=== PATIENT | male | born 1970 | race Caucasian/White ===

== ENCOUNTER → 2025-01-26 | Outpatient (CLI) | payer OTHER, SELFPAY ==
--- NOTE | 2025-01-26 09:35 | NM_ITS ---
PROCEDURE: PARATHYROID SCAN REASON FOR EXAM: LOCALIZATION TECHNIQUE: PARATHYROID SCAN imaging performed following intravenous technetium-99m sestamibi administration. Anterior imaging of the neck through hours. RADIOPHARMACEUTICAL: Sestamibi DOSE 27mCi COMPARISON: None FINDINGS: On the initial image of the neck, focal uptake is seen in the lower pole of the left lobe of the thyroid. Correlation with ultrasound recommended. On the 2 hour delayed images, no evidence of parathyroid uptake. NM/Parathyroid Scan IMPRESSION: No evidence of parathyroid uptake. On the initial image, focal increased uptake of pharmaceutical seen in the lowe r pole of the left lobe of the thyroid. Correlation with ultrasound recommended. Reading Location: [facility]
== END | disposition home or self-care (01) ==
LOC: NM 09:30
PROVIDERS: PCP Family Medicine; Referring Provider Internal Medicine Endocrinology, Diabetes & Metabolism; Visit Provider Internal Medicine Endocrinology, Diabetes & Metabolism
DX: E21.0 Primary hyperparathyroidism (principal)
CPT/HCPCS: 78070; A9500